=== PATIENT | male | born 1970 | race Caucasian/White ===

== ENCOUNTER 2017-10-02 18:01 | Emergency (ER) | payer OTHER ==
[~2017-10-02] VITALS: Ht 182.8 cm; Wt 61.2 kg
[~2017-10-02 18:01] MED LIST: CATAFLAM50 MG PO; CLARITIN10 MG PO; ROBAXIN750 MG PO; VICODIN 5/500 505 MG PO
[2017-10-02] MEDS ORDERED: Tobrex Ophth S2.5 ML OPH (18:26)
== END 2017-10-02 18:38 | disposition home or self-care (01) ==
LOC: ED 18:01
DX: S05.01XA Injury of conjunctiva and corneal abrasion without foreign body, right eye, initial encounter (principal); R03.0 Elevated blood-pressure reading, without diagnosis of hypertension; F17.200 Nicotine dependence, unspecified, uncomplicated; Z91.030 Bee allergy status; W22.8XXA Striking against or struck by other objects, initial encounter; Y93.89 Activity, other specified; Y92.89 Other specified places as the place of occurrence of the external cause; Y99.8 Other external cause status

== ENCOUNTER 2019-03-01 09:58 | Emergency (ER) | payer OTHER ==
[~2019-03-01] VITALS: Ht 180.3 cm; Wt 61.2 kg
[~2019-03-01 09:58] MED LIST changes: +KEFLEX500 M1 PO; +PREDNISONE20 M1 PO; +Tobrex Ophth S2.5 ML OPH
[2019-03-01] MEDS ORDERED: PREDNISONE50 MG PO (11:03)
[2019-03-01] MEDS ORDERED: VISTARIL25 MG PO (11:03)
== END 2019-03-01 11:57 | disposition home or self-care (01) ==
LOC: ED 09:58
DX: L50.9 Urticaria, unspecified (principal); H57.89 Other specified disorders of eye and adnexa; Z91.030 Bee allergy status; Z79.899 Other long term (current) drug therapy

== ENCOUNTER → 2025-02-26 | Outpatient (CLI) | payer OTHER ==
[~2025-02-26] MED LIST changes: +PREDNISONE50 MG PO; +VISTARIL25 MG PO
[2025-02-26 10:11] LABS: BASO % 0.2 % (0.0-1.0); EOS % 0.2 % (1.0-4.0); HEMATOCRIT 43.3 % (42.0-52.0); MEAN CELL VOLUME 98.2 fl (80.0-94.0); MEAN CORPUSCULAR HGB 33.3 pg (27.0-31.0); MEAN CORPUSCULAR HGB CONC 33.9 g/dl (33.0-37.0); MEAN PLATELET VOLUME 9.4 fl (9.6-12.3); MONO # 1.5 10*3/uL (0.1-1.0); MONO % 12.9 % (3.0-9.0); NEUT # 8.5 10*3/uL (2.3-7.9); NEUT % 74.1 % (47.0-73.0); PLATELET COUNT AUTOMATED 202 10*3/uL (130-400); RED BLOOD COUNT 4.41 10*6/uL (4.50-5.90); RED CELL DISTRI WIDTH 13.3 % (0-14.5); WHITE BLOOD COUNT 11.5 10*3/uL (4.8-10.8)
[2025-02-26 10:49] LABS: ALKALINE PHOSPHATASE 106 U/L (46-116); BUN 7 mg/dl (9-23); CHLORIDE 97 mmol/L (98-107); POTASSIUM 3.2 mmol/L (3.4-5.1); SGPT/ALT 9 U/L (5-49); TOTAL PROTEIN 7.7 gm/dL (6.0-8.0)
[2025-02-26 15:22] LABS: BF LYMPHOCYTES 2 %; BF MACROPHAGES 1 %; BF NEUTROPHILS 97 %
[2025-02-27 08:08] LABS: ACID FAST SPEC PROCESSING Direct Inoculation (.)
== END | disposition home or self-care (01) ==
LOC: LAB 09:47
PROVIDERS: ATTEND Orthopaedic Surgery
DX: M25.462 Effusion, left knee (principal)